=== PATIENT | female | born 1970 | race Caucasian/White ===

== ENCOUNTER 2021-11-18 20:11 | Emergency (ER) | payer OTHER ==
[2021-11-18] MEDS ORDERED: Dexamethasone 10 MG/ML VIAL ONE (21:17)
== END 2021-11-18 22:07 | disposition home or self-care (01) ==
LOC: ERS 20:11
DX: J44.1 Chronic obstructive pulmonary disease with (acute) exacerbation (principal); E78.5 Hyperlipidemia, unspecified; I10 Essential (primary) hypertension; M19.90 Unspecified osteoarthritis, unspecified site; M06.9 Rheumatoid arthritis, unspecified; F17.210 Nicotine dependence, cigarettes, uncomplicated; Z79.899 Other long term (current) drug therapy; Z79.82 Long term (current) use of aspirin
CPT/HCPCS: 93005; 94640; J1100; J7620